=== PATIENT | female | born 1965 | race Caucasian/White ===

== ENCOUNTER 2017-10-17 14:43 | Emergency (ER) | payer MEDICARE, OTHER ==
[2017-10-17] MEDS ORDERED: ASPIRIN 325 MG TABLET ONE (15:11)
[2017-10-17] MEDS ORDERED: METHYLPREDNISOLONE SOD SUCC 125MG/2ML VIAL ONE (15:12)
[2017-10-17 15:15] LABS: BASOPHILS % (AUTO) 1.3 % (0.0-5.0); EOSINOPHILS % (AUTO) 1.4 % (0.0-8.0); HEMATOCRIT 42.3 % (36-48); LYMPHOCYTES % (AUTO) 36.1 % (21.0-51.0); MEAN CORPUSCULAR HEMOGLOBIN 32.6 pg (27.0-33.0); MEAN CORPUSCULAR HGB CONC 34.5 g/dL (32.0-36.0); MEAN CORPUSCULAR VOLUME 94.3 fL (79-99); MONOCYTES % (AUTO) 6.1 % (3.0-13.0); NEUTROPHILS % (AUTO) 55.1 % (40.0-77.0); PLATELET COUNT (AUTO) 212 K/uL (130-400); RED BLOOD CELL COUNT(AUTO) 4.48 MIL/uL (4.00-5.50); RED CELL DISTRIBUTION WIDTH 12.6 % (11.0-15.5); WHITE BLOOD COUNT (AUTO) 7.3 K/uL (4.8-10.8)
[2017-10-17 15:29] LABS: INR 0.91 (0.85-1.15); PARTIAL THROMBOPLASTIN TIME 27.4 SEC (26.3-35.5); PROTHROMBIN TIME 9.6 SEC (9.6-11.6)
[2017-10-17 15:40] LABS: B-TYPE NATRIURETIC PEPTIDE 38 pg/mL (0-100)
[2017-10-17 15:44] LABS: CREATININE 0.7 mg/dL (0.5-1.5); POTASSIUM 4.1 mmol/L (3.5-5.1)
[2017-10-17] MEDS ORDERED: IPRATROPIUM/ALBUTEROL SULFATE 3 ML SOLUTION IH ONE (15:45)
[2017-10-17 15:58] LABS: ALBUMIN 4.2 g/dL (3.5-5.0); BILIRUBIN,TOTAL 0.8 mg/dL (0.2-1.0); CREATINE KINASE MB 0.8 ng/mL (0.5-3.6); TOTAL PROTEIN, SERUM 7.3 g/dL (6.0-8.3)
[2017-10-17] MEDS ORDERED: LEVOFLOXACIN 500 MG TABLET ONE (16:19)
[2017-10-17] MEDS ORDERED: IOPAMIDOL-370 100 ML VIAL IV ONE (16:24)
[2017-10-17] MEDS ORDERED: ALBUTEROL SULFATE 0.083% 2.5 MG/3 ML INH IH ONE (16:25)
[2017-10-17] MEDS ORDERED: SODIUM CHLORIDE 0.9% 1000ML 1,000 ML IV ONE (17:01)
== END 2017-10-17 18:12 | disposition home or self-care (01) ==
LOC: EDH 14:43 → EDHIP 17:13 → UNDOADMIN 17:13 → EDH 18:12
DX: J44.1 Chronic obstructive pulmonary disease with (acute) exacerbation (principal); M79.1 Myalgia; R53.83 Other fatigue; R53.81 Other malaise
CPT/HCPCS: 36415; 71045; 71275; 80053; 82550; 82553; 83605; 83880; 84443; 84484; 85025; 85378; 85610; 85730; 86140; 93005; 94640 ×2; 94761; 96374; 99285; J2930; J7030; Q9967

== ENCOUNTER → 2023-06-01 | Outpatient (CLI) | payer OTHER, MEDICARE ==
[~2023-06-01] MED LIST: IOHEXOL 350 MG/ML 100ML INFUS..BTL IV ONE; METOPROLOL TARTRATE 1 MG/ML 5ML VIAL IV ONE
== END | disposition home or self-care (01) ==
LOC: RAH 08:42
PROVIDERS: ATTEND Student in an Organized Health Care Education/Training Program
DX: R07.9 Chest pain, unspecified (principal)
CPT/HCPCS: 75574; J3490; Q9967

== ENCOUNTER → 2023-06-28 | Outpatient (CLI) | payer OTHER, MEDICARE | END | disposition home or self-care (01) | LOC: SHCH 15:34 | PROVIDERS: ATTEND Student in an Organized Health Care Education/Training Program | DX: R07.9 Chest pain, unspecified (principal); I10 Essential (primary) hypertension; E78.5 Hyperlipidemia, unspecified | CPT/HCPCS: 93306 ==